=== PATIENT | female | born 1945 | race Caucasian/White ===

== ENCOUNTER 2019-02-06 16:02 | Emergency (ER) | payer MEDICARE, MEDICAID ==
[~2019-02-06] VITALS: Ht 157.5 cm; Wt 85.0 kg
[2019-02-06 18:12] LABS: BASOPHILS % (AUTO) 0.4 % (0-1); EOSINOPHILS # (AUTO) 0.1 X10'3 (0-0.9); EOSINOPHILS % (AUTO) 1.4 % (0-6); HEMATOCRIT 40.5 % (35.0-45.0); HEMOGLOBIN 13.7 g/dl (12.0-16.0); LYMPHOCYTES # (AUTO) 1.3 X10'3 (1.1-4.8); LYMPHOCYTES % (AUTO) 27.5 % (21-51); MEAN CORPUSCULAR HEMOGLOBIN 30.9 PG (27.0-31.0); MEAN CORPUSCULAR HGB CONC 33.8 g/dL (33.0-36.5); MEAN CORPUSCULAR VOLUME 91.2 FL (78-98); MEAN PLATELET VOLUME 7.6 FL (7.4-10.4); MONOCYTES # (AUTO) 0.5 X10'3 (0-0.9); MONOCYTES % (AUTO) 11.3 % (2-12); NEUTROPHILS # (AUTO) 2.8 X10'3 (1.8-7.7); NEUTROPHILS % (AUTO) 59.4 % (42-75); PLATELET COUNT 197 X10'3 (140-440); RED BLOOD COUNT 4.44 X10'6 (4.20-5.60); RED CELL DISTRIBUTION WIDTH 16.2 % (11.5-14.5); WHITE BLOOD COUNT 4.7 X10'3 (4.5-11.0)
[2019-02-06 18:23] LABS: ALANINE AMINOTRANSFERASE 24 U/L (12-78); ALBUMIN 3.2 G/DL (3.4-5.0); ALBUMIN/GLOBULIN RATIO 0.9 (1.1-1.5); ALKALINE PHOSPHATASE 105 IU/L (46-116); ANION GAP 6 (8-16); ASPARTATE AMINO TRANSFERASE 18 U/L (10-37); BILIRUBIN,TOTAL 0.2 MG/DL (0.1-1.0); BLOOD UREA NITROGEN 20 MG/DL (7-18); BUN/CREATININE RATIO 21.5 (6.6-38.0); CALCIUM 8.4 MG/DL (8.5-10.1); CHLORIDE 107 MMOL/L (99-107); CREATININE 0.93 MG/DL (0.40-0.90); GLUCOSE 83 MG/DL (70-104); LIPASE 78 U/L (73-393); MAGNESIUM 2.1 MG/DL (1.5-2.4); SODIUM 144 MMOL/L (135-145); TOTAL CARBON DIOXIDE 30.9 MMOL/L (24-32); TOTAL PROTEIN 6.6 G/DL (6.4-8.2); eGFR 59 ML/MIN
[2019-02-06] MEDS ORDERED: naproxen 500mg tablet PO ONE (19:30)
[2019-02-06 20:22] VITALS: BP 140/86
== END 2019-02-06 20:22 | disposition home or self-care (01) ==
LOC: ER 16:03
DX: R51 Headache (principal); M54.2 Cervicalgia; R42 Dizziness and giddiness; R10.30 Lower abdominal pain, unspecified; I25.10 Atherosclerotic heart disease of native coronary artery without angina pectoris; E78.00 Pure hypercholesterolemia, unspecified; I10 Essential (primary) hypertension; J44.9 Chronic obstructive pulmonary disease, unspecified; K21.9 Gastro-esophageal reflux disease without esophagitis; F31.9 Bipolar disorder, unspecified; F20.9 Schizophrenia, unspecified; Z86.73 Personal history of transient ischemic attack (TIA), and cerebral infarction without residual deficits; Z86.718 Personal history of other venous thrombosis and embolism
CPT/HCPCS: 36415; 70450; 71045; 72125; 80053; 83690; 83735; 84484; 85025; 93005; 99284

== ENCOUNTER 2019-04-04 15:34 | Observation (INO) | payer MEDICARE, MEDICAID ==
[~2019-04-04] VITALS: Ht 160 cm; Wt 101.0 kg
[2019-04-04] MEDS ORDERED: ondansetron/PF 4mg/2ml inj IV ONE (15:45)
[2019-04-04] MEDS ORDERED: nitroGLYCERIN-Tridil 50MG/D5W 250 ML IV ONE (15:45)
[2019-04-04] MEDS ORDERED: morphine 4 MG/ML inj SYRINge IV ONE (15:45)
--- NOTE | 2019-04-04 15:54 | NUR ---
Patient Conserved caregiver contact: All [phone]
[2019-04-04 16:15] LABS: BASOPHILS % (AUTO) 0.5 % (0-1); EOSINOPHILS # (AUTO) 0.1 X10'3 (0-0.9); EOSINOPHILS % (AUTO) 1.7 % (0-6); HEMATOCRIT 41.1 % (35.0-45.0); HEMOGLOBIN 13.9 g/dl (12.0-16.0); LYMPHOCYTES # (AUTO) 1.1 X10'3 (1.1-4.8); MEAN CORPUSCULAR HEMOGLOBIN 32.2 PG (27.0-31.0); MEAN CORPUSCULAR HGB CONC 33.8 g/dL (33.0-36.5); MEAN CORPUSCULAR VOLUME 95.5 FL (78-98); MEAN PLATELET VOLUME 7.8 FL (7.4-10.4); MONOCYTES # (AUTO) 0.5 X10'3 (0-0.9); MONOCYTES % (AUTO) 10.6 % (2-12); NEUTROPHILS # (AUTO) 2.9 X10'3 (1.8-7.7); NEUTROPHILS % (AUTO) 63.2 % (42-75); PLATELET COUNT 204 X10'3 (140-440); RED BLOOD COUNT 4.31 X10'6 (4.20-5.60); WHITE BLOOD COUNT 4.6 X10'3 (4.5-11.0)
[2019-04-04 16:21] LABS: PARTIAL THROMBOPLASTIN TIME 26 SECONDS (22-32)
[2019-04-04 16:25] LABS: ALANINE AMINOTRANSFERASE 19 U/L (12-78); ALBUMIN 3.3 G/DL (3.4-5.0); ALBUMIN/GLOBULIN RATIO 0.9 (1.1-1.5); ALKALINE PHOSPHATASE 105 IU/L (46-116); ANION GAP 3 (8-16); ASPARTATE AMINO TRANSFERASE 18 U/L (10-37); BILIRUBIN,TOTAL 0.2 MG/DL (0.1-1.0); BLOOD UREA NITROGEN 17 MG/DL (7-18); BUN/CREATININE RATIO 19.3 (6.6-38.0); CALCIUM 8.6 MG/DL (8.5-10.1); CHLORIDE 106 MMOL/L (99-107); CREATININE 0.88 MG/DL (0.40-0.90); GLUCOSE 89 MG/DL (70-104); POTASSIUM 4.1 MMOL/L (3.5-5.1); SODIUM 142 MMOL/L (135-145); TOTAL CARBON DIOXIDE 33.5 MMOL/L (24-32); TOTAL PROTEIN 6.9 G/DL (6.4-8.2); eGFR 63 ML/MIN
[2019-04-04] MEDS ORDERED: acetaminophen 325mg tablet PO PRN (17:25)
[2019-04-04] MEDS ORDERED: normal saline 1000ml 1,000 ML IV SCH (17:25)
[2019-04-04] MEDS ORDERED: potassium Cl 20 mEq SR tablet PO PRN ×2 (17:25)
[2019-04-04] MEDS ORDERED: magnesium Cl slow-release 64mg tablet PO PRN (17:25)
[2019-04-04] MEDS ORDERED: magnesium 4gm in 100ml NS 100 ML IV PRN (17:25)
[2019-04-04] MEDS ORDERED: morphine 2 MG/ML inj. syringe IV PRN (17:25)
[2019-04-04] MEDS ORDERED: potassium CL 10mEq/100ml bag 100 ML IV PRN ×2 (17:25)
[2019-04-04] MEDS ORDERED: ondansetron/PF 4mg/2ml inj IV PRN (17:25)
[2019-04-04] MEDS ORDERED: magnesium 2GM in 50ml NS 50 ML IV PRN (17:25)
[2019-04-04] MEDS ORDERED: regadenoson 0.4mg/5ml syringe IV ONE (17:35)
[2019-04-04] MEDS ORDERED: metoprolol tartrate 1mg/ml inj IV PRN (17:35)
[2019-04-04] MEDS ORDERED: nitroGLYCERIN 0.4mg SUBLingual tab SL PRN (17:35)
[2019-04-04] MEDS ORDERED: aminophylline 250mg/10ml inj. IV PRN (17:35)
[2019-04-04] MEDS ORDERED: ALB0.5UD NEB (17:39)
[2019-04-04] MEDS ORDERED: SENN-162 PO (17:39)
[2019-04-04] MEDS ORDERED: ETRA200T PO (17:39)
[2019-04-04] MEDS ORDERED: METO25TA6 PO (17:39)
[2019-04-04] MEDS ORDERED: RALT400T PO (17:39)
[2019-04-04] MEDS ORDERED: VALB80CA PO (17:39)
[2019-04-04] MEDS ORDERED: CARB200T PO (17:39)
[2019-04-04] MEDS ORDERED: MULT-227 PO (17:39)
[2019-04-04] MEDS ORDERED: OMEP-50 PO (17:39)
[2019-04-04] MEDS ORDERED: MELA3TAB64 PO (17:39)
[2019-04-04] MEDS ORDERED: APIX5TAB3 PO (17:39)
[2019-04-04] MEDS ORDERED: OLAN10TA3 PO (17:39)
[2019-04-04] MEDS ORDERED: OLAN20TA34 PO (17:39)
[2019-04-04] MEDS ORDERED: DOCU-148 PO (17:39)
[2019-04-04] MEDS ORDERED: EMTR1TAB18 PO (17:39)
[2019-04-04] MEDS: K and/or MAG REPLACEMENT MC SCH (20:00)
--- NOTE | 2019-04-04 20:23 | NUR ---
PT IS UP TO THE FLOOR AT THIS TIME VIA SUKHDEEP AND ONE ATTENDANT, AND HER CAREGIVER. CAREGIVER REPORTS THAT PT IS HIV (+) AND HEP C (+). PER CAREGIVER, SHE IS DELUSIONAL, SHE TELLS STORIES THAT DO NOT HAPPEN AND HALLUCINATIONS. WILL CONTINUE TO MONITOR.
[2019-04-04 20:30] VITALS: BP 129/92
[2019-04-04] MEDS ORDERED: albuterol 2.5 MG/3 ML nebule NEB PRN (22:05)
[2019-04-04 22:23] LABS: HEMOGLOBIN A1C 5.8 % (4.5-6.2)
--- NOTE | 2019-04-04 23:05 | NUR ---
pt is requesting "a pain shot" for chest pain. recent EKG shows NSR. BP 102/59, HR 79. spo2 90%/RA. Pt is asymptomatic. pt states that her pain is in her arm, points to shoulder joint, RN palpates shoulder, pt states "ouch". She states that she "having a hard time breathing." RN will admin. O2 2L/nc for spo2 of 90% and monitor, could be that has angina from anxiety and needs O2. pain in arm is reactionary to palpation which may be joint pain. Troponins are (-). EKG;NSR. all VSS. pt is on TELEmetry.
[2019-04-05] VITALS (8 sets, daily range): BP systolic 76–112; BP diastolic 44–63
[2019-04-05] MEDS: carBAMazepine 100mg chewable tablet PO SCH ×2 (00:29→08:24)
[2019-04-05 05:58] LABS: BASOPHILS % (AUTO) 0.7 % (0-1); EOSINOPHILS # (AUTO) 0.1 X10'3 (0-0.9); EOSINOPHILS % (AUTO) 2.7 % (0-6); HEMATOCRIT 40.4 % (35.0-45.0); HEMOGLOBIN 13.7 g/dl (12.0-16.0); LYMPHOCYTES # (AUTO) 1.3 X10'3 (1.1-4.8); LYMPHOCYTES % (AUTO) 27.4 % (21-51); MEAN CORPUSCULAR HEMOGLOBIN 32.4 PG (27.0-31.0); MEAN CORPUSCULAR HGB CONC 33.8 g/dL (33.0-36.5); MEAN CORPUSCULAR VOLUME 95.7 FL (78-98); MEAN PLATELET VOLUME 7.8 FL (7.4-10.4); MONOCYTES # (AUTO) 0.5 X10'3 (0-0.9); MONOCYTES % (AUTO) 11.7 % (2-12); NEUTROPHILS # (AUTO) 2.6 X10'3 (1.8-7.7); NEUTROPHILS % (AUTO) 57.5 % (42-75); PLATELET COUNT 171 X10'3 (140-440); RED BLOOD COUNT 4.22 X10'6 (4.20-5.60); RED CELL DISTRIBUTION WIDTH 14.1 % (11.5-14.5); WHITE BLOOD COUNT 4.6 X10'3 (4.5-11.0)
--- NOTE | 2019-04-05 06:13 | NUR ---
REPORT GIVEN TO MALLORY PRICE.
[2019-04-05 06:43] LABS: ALBUMIN 2.9 G/DL (3.4-5.0); ANION GAP 7 (8-16); BLOOD UREA NITROGEN 24 MG/DL (7-18); BUN/CREATININE RATIO 26.7 (6.6-38.0); CALCIUM 8.6 MG/DL (8.5-10.1); CHLORIDE 108 MMOL/L (99-107); GLUCOSE 100 MG/DL (70-104); POTASSIUM 4.4 MMOL/L (3.5-5.1); SODIUM 145 MMOL/L (135-145); eGFR 62 ML/MIN
[2019-04-05] MEDS: K and/or MAG REPLACEMENT MC SCH (08:00)
[2019-04-05] MEDS ORDERED: multivitamins, therapeutics tablet PO SCH (08:00)
[2019-04-05] MEDS ORDERED: ETRAVIRINE PO SCH (08:00)
[2019-04-05] MEDS ORDERED: pantoprazole 40mg Tablet.DR PO SCH (08:00)
[2019-04-05] MEDS ORDERED: (Emtricitabine/Tenofov Alafenam (Descovy 200-25 mg Tablet) 1 TAB) PO SCH (08:00)
[2019-04-05] MEDS ORDERED: apixaban 5mg tablet PO SCH (08:00)
[2019-04-05] MEDS ORDERED: sennosides 8.6mg tablet PO SCH (08:00)
[2019-04-05] MEDS ORDERED: RALTEGRAVIR POTASSIUM PO SCH (08:00)
[2019-04-05] MEDS ORDERED: docusate sod 100mg capsule PO SCH (08:00)
[2019-04-05] MEDS ORDERED: metoprolol tartrate 25mg tablet PO SCH (08:00)
--- NOTE | 2019-04-05 15:40 | NUR ---
Received discharge orders from Dr. Escalona. IV LFA dc'd with cannula intact. No redness/swelling at insertion site. Bandaid and pressure applied x 10 minutes (Pt on Eliquis). Reviewed discharge instructions with [employer] VP present at bedside to pick pt up from [facility]. No new medications ordered on discharge from [facility]. Pt discharged via w/c to private van driven by NVDS.
[2019-04-05] MEDS ORDERED: Melatonin 3mg tablet PO SCH (21:00)
[2019-04-05] MEDS ORDERED: VALBENAZINE TOSYLATE PO SCH (21:00)
[2019-04-05] MEDS ORDERED: olanzapine 10mg tablet PO SCH (21:00)
--- NOTE | 2019-04-06 14:59 | NUR ---
Case Management DC follow up: spoke to CARE staff/Irving Frost at [facility]/long-term. reports pt is doing fine. no c/o recurrent cp, emergent general pain, SOB, resp distress, NV, dizziness, abd pain, MUNOZ, dizziness. understands meds/why prescribed, administering as ordered, no ase noted. pt compliant. Verbalizes understanding of s/s that would warrant 9-11/ER visit for evaluation. needs met, questions answered at DC. no further questions at this time.
== END 2019-04-05 15:46 | disposition home or self-care (01) ==
LOC: ER 15:35 → ED HOLD 17:25 → ORTHO 4S 20:10
PROVIDERS: ADMIT Internal Medicine; ATTEND Internal Medicine
DX: R07.89 Other chest pain (principal); I10 Essential (primary) hypertension; I24.9 Acute ischemic heart disease, unspecified; E11.9 Type 2 diabetes mellitus without complications; K21.9 Gastro-esophageal reflux disease without esophagitis; I25.10 Atherosclerotic heart disease of native coronary artery without angina pectoris; E78.5 Hyperlipidemia, unspecified; E78.00 Pure hypercholesterolemia, unspecified; F20.9 Schizophrenia, unspecified; J44.9 Chronic obstructive pulmonary disease, unspecified; F31.9 Bipolar disorder, unspecified; Z87.19 Personal history of other diseases of the digestive system; Z86.718 Personal history of other venous thrombosis and embolism; Z86.73 Personal history of transient ischemic attack (TIA), and cerebral infarction without residual deficits; Z90.710 Acquired absence of both cervix and uterus; Z79.899 Other long term (current) drug therapy; Z79.01 Long term (current) use of anticoagulants; Z88.0 Allergy status to penicillin; Z88.5 Allergy status to narcotic agent; Z88.8 Allergy status to other drugs, medicaments and biological substances; Z88.6 Allergy status to analgesic agent
CPT/HCPCS: 36415; 71045; 78452; 80048; 80053; 83036; 83735; 83880; 84484; 85025; 85610; 85730; 87081; 93005; 93017; 94760; 96374; 96375; 99285; A9500; G0378; J2270; J2405; J7030

== ENCOUNTER 2019-12-06 11:44 | Emergency (ER) | payer MEDICARE, MEDICAID ==
[~2019-12-06] VITALS: Ht 165.1 cm; Wt 100.0 kg
[~2019-12-06 11:44] MED LIST: ALB0.5UD NEB; APIX5TAB3 PO; CARB200T PO; DOCU-148 PO; EMTR1TAB18 PO; ETRA200T PO; MELA3TAB39 PO; METO25TA6 PO; MULT-227 PO; OLAN20TA34 PO; OMEP-50 PO; RALT400T PO; SENN-263 PO; VALB80CA PO
--- NOTE | 2019-12-06 11:52 | NUR ---
PT SEEN BY DARRELL RODRIGUEZ SHORTLY AFTER ARRIVING TO ROOM. PT BEING PLACED ON BP MONITOR, NO CARDIAC MONITORING OR IV TO BE INITIATED PER VO DARRELL RODRIGUEZ.
--- NOTE | 2019-12-06 12:20 | NUR ---
PT REMAINS STABLE, CAREGIVER REMAINS AT BEDSIDE.
[2019-12-06 13:20] VITALS: BP 119/75
== END 2019-12-06 13:19 | disposition home or self-care (01) ==
LOC: ER 11:44
DX: S00.83XA Contusion of other part of head, initial encounter (principal); I25.10 Atherosclerotic heart disease of native coronary artery without angina pectoris; E78.00 Pure hypercholesterolemia, unspecified; I10 Essential (primary) hypertension; J44.9 Chronic obstructive pulmonary disease, unspecified; K21.9 Gastro-esophageal reflux disease without esophagitis; F31.9 Bipolar disorder, unspecified; F20.9 Schizophrenia, unspecified; Z86.73 Personal history of transient ischemic attack (TIA), and cerebral infarction without residual deficits; Z86.718 Personal history of other venous thrombosis and embolism; Z88.0 Allergy status to penicillin; Z88.5 Allergy status to narcotic agent; Z88.6 Allergy status to analgesic agent; Z88.8 Allergy status to other drugs, medicaments and biological substances; Z79.01 Long term (current) use of anticoagulants; Z79.899 Other long term (current) drug therapy; W19.XXXA Unspecified fall, initial encounter; Y93.89 Activity, other specified; Y92.89 Other specified places as the place of occurrence of the external cause; Y99.8 Other external cause status
CPT/HCPCS: 70450; 70486; 72125; 99285

== ENCOUNTER 2021-01-23 18:38 | Emergency (ER) | payer MEDICARE, MEDICAID ==
[~2021-01-23] VITALS: Ht 160 cm; Wt 70.3 kg
[~2021-01-23 18:38] MED LIST changes: +LOP25T PO; -METO25TA6 PO
[2021-01-23 19:55] LABS: BASOPHILS % (AUTO) 0.3 % (0-1); EOSINOPHILS # (AUTO) 0.1 X10'3 (0-0.9); EOSINOPHILS % (AUTO) 0.8 % (0-6); HEMATOCRIT 37.3 % (35.0-45.0); HEMOGLOBIN 12.8 g/dl (12.0-16.0); LYMPHOCYTES # (AUTO) 1.1 X10'3 (1.1-4.8); LYMPHOCYTES % (AUTO) 14.9 % (21-51); MEAN CORPUSCULAR HEMOGLOBIN 33.8 PG (27.0-31.0); MEAN CORPUSCULAR HGB CONC 34.3 g/dL (33.0-36.5); MEAN CORPUSCULAR VOLUME 98.4 FL (78-98); MEAN PLATELET VOLUME 8.2 FL (7.4-10.4); MONOCYTES # (AUTO) 0.7 X10'3 (0-0.9); MONOCYTES % (AUTO) 9.1 % (2-12); NEUTROPHILS # (AUTO) 5.5 X10'3 (1.8-7.7); NEUTROPHILS % (AUTO) 74.9 % (42-75); PLATELET COUNT 186 X10'3 (140-440); RED BLOOD COUNT 3.79 X10'6 (4.20-5.60); WHITE BLOOD COUNT 7.4 X10'3 (4.5-11.0)
[2021-01-23 20:05] LABS: ALANINE AMINOTRANSFERASE 23 U/L (12-78); ALBUMIN 3.1 G/DL (3.4-5.0); ALKALINE PHOSPHATASE 82 IU/L (46-116); ANION GAP 8 (8-16); ASPARTATE AMINO TRANSFERASE 19 U/L (10-37); BILIRUBIN,TOTAL 0.2 MG/DL (0.1-1.0); BLOOD UREA NITROGEN 20 MG/DL (7-18); CALCIUM 8.5 MG/DL (8.5-10.1); CHLORIDE 103 MMOL/L (99-107); CREATININE 0.91 MG/DL (0.40-0.90); GLUCOSE 108 MG/DL (70-104); POTASSIUM 3.8 MMOL/L (3.5-5.1); SODIUM 140 MMOL/L (135-145); TOTAL CARBON DIOXIDE 29.1 MMOL/L (24-32); TOTAL PROTEIN 6.3 G/DL (6.4-8.2); eGFR 60 ML/MIN
--- NOTE | 2021-01-23 20:10 | NUR ---
IRONING PLEATER ANA [id number] NURSE [phone]
[2021-01-23 20:32] LABS: CLARITY,URINE SLIGHTLY CLOUDY (Clear); COLOR,URINE YELLOW (Yellow); GLUCOSE, URINE NEGATIVE (Neg); KETONES,URINE NEGATIVE (Neg); LEUKOCYTE ESTERASE ,URINE NEGATIVE (Neg); NITRITES, URINE NEGATIVE (Neg); OCCULT BLOOD,URINE SMALL (Neg); PH,URINE 5.5 (4.8-8.0); PROTEIN,URINE NEGATIVE (Neg); UROBILINOGEN,URINE 0.2 E.U/dL (0.2-1.0)
[2021-01-23 20:34] LABS: UA COLLECTION TYPE CLN CATCH MIDSTREAM
[2021-01-23 20:43] LABS: MUCUS STRANDS MODERATE /LPF (Neg)
[2021-01-23 20:44] LABS: SQUAMOUS EPITHELIAL CELL,UR FEW /LPF (FEW)
[2021-01-23] MEDS ORDERED: normal saline 1000ML IV soln IVB ONE (20:45)
[2021-01-23 20:46] LABS: AMORPHOUS URATES 1+; BACTERIA,URINE 2+ /HPF (Neg)
[2021-01-23] MEDS ORDERED: levoFLOXACIN 500mg tablet PO ONE (21:00)
[2021-01-23] MEDS ORDERED: LEVO250T43 PO (21:05)
[2021-01-23 21:36] VITALS: BP 131/70
--- NOTE | 2021-01-23 21:37 | NUR ---
Pt given d/c instructions. Waiting for caregiver to take her home.
== END 2021-01-23 22:30 | disposition home or self-care (01) ==
LOC: ER 18:38
DX: S09.90XA Unspecified injury of head, initial encounter (principal); M54.2 Cervicalgia; M54.6 Pain in thoracic spine; N39.0 Urinary tract infection, site not specified; I25.10 Atherosclerotic heart disease of native coronary artery without angina pectoris; E78.00 Pure hypercholesterolemia, unspecified; I10 Essential (primary) hypertension; J44.9 Chronic obstructive pulmonary disease, unspecified; K59.00 Constipation, unspecified; K21.9 Gastro-esophageal reflux disease without esophagitis; Z21 Asymptomatic human immunodeficiency virus [HIV] infection status; Z86.73 Personal history of transient ischemic attack (TIA), and cerebral infarction without residual deficits; Z79.899 Other long term (current) drug therapy; Z88.0 Allergy status to penicillin; Z88.6 Allergy status to analgesic agent; Z88.8 Allergy status to other drugs, medicaments and biological substances; W19.XXXA Unspecified fall, initial encounter; Y93.89 Activity, other specified; Y92.89 Other specified places as the place of occurrence of the external cause; Y99.8 Other external cause status
CPT/HCPCS: 36415; 70450; 71045; 72125; 80053; 81001; 83880; 84484; 85025; 87077; 87088; 87186; 93005; 99285; J7030; 96360; 96361

== ENCOUNTER 2021-06-29 08:51 | Emergency (ER) | payer MEDICARE, MEDICAID ==
[~2021-06-29] VITALS: Ht 157.5 cm; Wt 80.5 kg
[~2021-06-29 08:51] MED LIST changes: -OMEP-50 PO; +OMEP20CA16 PO
[2021-06-29 11:34] VITALS: BP 114/65
== END 2021-06-29 11:36 | disposition home or self-care (01) ==
LOC: ER 08:52
DX: M25.452 Effusion, left hip (principal); M25.552 Pain in left hip; I25.10 Atherosclerotic heart disease of native coronary artery without angina pectoris; E78.00 Pure hypercholesterolemia, unspecified; I10 Essential (primary) hypertension; J44.9 Chronic obstructive pulmonary disease, unspecified; K21.9 Gastro-esophageal reflux disease without esophagitis; F31.9 Bipolar disorder, unspecified; F20.9 Schizophrenia, unspecified; Z86.73 Personal history of transient ischemic attack (TIA), and cerebral infarction without residual deficits; Z86.718 Personal history of other venous thrombosis and embolism; Z86.19 Personal history of other infectious and parasitic diseases; Z88.0 Allergy status to penicillin; Z88.5 Allergy status to narcotic agent; Z88.8 Allergy status to other drugs, medicaments and biological substances; Z79.899 Other long term (current) drug therapy
CPT/HCPCS: 73502; 99284

== ENCOUNTER 2021-11-20 11:22 | Emergency (ER) | payer MEDICARE, MEDICAID ==
[~2021-11-20] VITALS: Ht 157.5 cm; Wt 80.0 kg
[2021-11-20 12:18] LABS: BASOPHILS % (AUTO) 0.3 % (0-1); EOSINOPHILS % (AUTO) 0.4 % (0-6); HEMOGLOBIN 13.7 g/dl (12.0-16.0); LYMPHOCYTES # (AUTO) 0.8 X10'3 (1.1-4.8); LYMPHOCYTES % (AUTO) 13.8 % (21-51); MEAN CORPUSCULAR HEMOGLOBIN 32.9 PG (27.0-31.0); MEAN CORPUSCULAR HGB CONC 33.4 g/dL (33.0-36.5); MEAN CORPUSCULAR VOLUME 98.5 FL (78-98); MEAN PLATELET VOLUME 7.9 FL (7.4-10.4); MONOCYTES # (AUTO) 0.2 X10'3 (0-0.9); MONOCYTES % (AUTO) 4.2 % (2-12); NEUTROPHILS # (AUTO) 4.6 X10'3 (1.8-7.7); NEUTROPHILS % (AUTO) 81.3 % (42-75); PLATELET COUNT 157 X10'3 (140-440); RED BLOOD COUNT 4.16 X10'6 (4.20-5.60); RED CELL DISTRIBUTION WIDTH 13.1 % (11.5-14.5); WHITE BLOOD COUNT 5.7 X10'3 (4.5-11.0)
[2021-11-20 12:33] LABS: ALANINE AMINOTRANSFERASE 33 U/L (12-78); ALBUMIN 3.4 G/DL (3.4-5.0); ALBUMIN/GLOBULIN RATIO 1.1 (1.1-1.5); ALKALINE PHOSPHATASE 97 IU/L (46-116); ANION GAP 8 (8-16); ASPARTATE AMINO TRANSFERASE 29 U/L (10-37); BILIRUBIN,TOTAL 0.2 MG/DL (0.1-1.0); BLOOD UREA NITROGEN 19 MG/DL (7-18); BUN/CREATININE RATIO 24.4 (6.6-38.0); CALCIUM 8.6 MG/DL (8.5-10.1); CHLORIDE 105 MMOL/L (99-107); CREATININE 0.78 MG/DL (0.40-0.90); GLUCOSE 132 MG/DL (70-104); LIPASE 78 U/L (73-393); POTASSIUM 3.9 MMOL/L (3.5-5.1); SODIUM 142 MMOL/L (135-145); TOTAL CARBON DIOXIDE 29.4 MMOL/L (24-32); TOTAL PROTEIN 6.6 G/DL (6.4-8.2); eGFR 72 ML/MIN
[2021-11-20] MEDS ORDERED: ondansetron/PF 4mg/2ml inj IV ONE ×2 (12:35→12:40)
[2021-11-20] MEDS ORDERED: normal saline 1000ml 1,000 ML IV ONE (12:40)
[2021-11-20] MEDS ORDERED: famotidine/PF 10 mg/ml inj IV ONE (12:40)
--- NOTE | 2021-11-20 12:52 | NUR ---
ATTEMPT EKG, PRIMARY RN AT BEDSIDE ATTEMPTING IV. WILL ATTEMPT AGAIN
--- NOTE | 2021-11-20 13:07 | NUR ---
Pt left ED for CT in [place] [facility], no stress noted
[2021-11-20 14:04] LABS: CLARITY,URINE CLOUDY (Clear); COLOR,URINE YELLOW (Yellow); GLUCOSE, URINE NEGATIVE (Neg); KETONES,URINE NEGATIVE (Neg); LEUKOCYTE ESTERASE ,URINE NEGATIVE (Neg); NITRITES, URINE NEGATIVE (Neg); OCCULT BLOOD,URINE NEGATIVE (Neg); PROTEIN,URINE NEGATIVE (Neg); UROBILINOGEN,URINE 0.2 E.U/dL (0.2-1.0)
[2021-11-20] MEDS ORDERED: ONDA8TAB13 PO (14:04)
[2021-11-20 14:16] LABS: MUCUS STRANDS MODERATE /LPF (Neg); SQUAMOUS EPITHELIAL CELL,UR FEW /LPF (FEW); UA COLLECTION TYPE STRAIGHT CATH
[2021-11-20 14:17] LABS: BACTERIA,URINE FEW /HPF (Neg); RBC,URINE 0-2 /HPF (0-2); WBC,URINE 0-4 /HPF (0-4)
[2021-11-20 14:18] LABS: AMORPHOUS PHOSPHATES 2+; TRANSITIONAL EPI CELLS,URINE FEW /HPF
[2021-11-20 15:45] VITALS: BP 130/74
== END 2021-11-20 15:50 | disposition home or self-care (01) ==
LOC: ER 11:22
DX: R10.84 Generalized abdominal pain (principal); E78.00 Pure hypercholesterolemia, unspecified; I10 Essential (primary) hypertension; J44.9 Chronic obstructive pulmonary disease, unspecified; K21.9 Gastro-esophageal reflux disease without esophagitis; F31.9 Bipolar disorder, unspecified; Z88.0 Allergy status to penicillin; Z88.5 Allergy status to narcotic agent; Z88.6 Allergy status to analgesic agent; Z88.8 Allergy status to other drugs, medicaments and biological substances
CPT/HCPCS: 36415; 70450; 71045; 80053; 81001; 83690; 84484; 85025; 93005; 96361; 96374; 96375; 99285; J2405; J3490; J7030; A4353

== ENCOUNTER 2022-10-01 10:12 | Emergency (ER) | payer MEDICARE, MEDICAID ==
[~2022-10-01] VITALS: Ht 157.5 cm; Wt 81.8 kg
[~2022-10-01 10:12] MED LIST changes: +ONDA8TAB13 PO
[2022-10-01 10:43] LABS: BASOPHILS % (AUTO) 0.6 % (0-1); EOSINOPHILS # (AUTO) 0.1 X10'3 (0-0.9); EOSINOPHILS % (AUTO) 1.1 % (0-6); HEMOGLOBIN 13.4 g/dl (12.0-16.0); LYMPHOCYTES # (AUTO) 1.4 X10'3 (1.1-4.8); LYMPHOCYTES % (AUTO) 25.5 % (21-51); MEAN CORPUSCULAR HEMOGLOBIN 33.2 PG (27.0-31.0); MEAN CORPUSCULAR HGB CONC 33.5 g/dL (33.0-36.5); MEAN CORPUSCULAR VOLUME 99.4 FL (78-98); MEAN PLATELET VOLUME 7.9 FL (7.4-10.4); MONOCYTES # (AUTO) 0.3 X10'3 (0-0.9); MONOCYTES % (AUTO) 6.3 % (2-12); NEUTROPHILS # (AUTO) 3.6 X10'3 (1.8-7.7); NEUTROPHILS % (AUTO) 66.5 % (42-75); PLATELET COUNT 192 X10'3 (140-440); RED BLOOD COUNT 4.03 X10'6 (4.20-5.60); RED CELL DISTRIBUTION WIDTH 13.3 % (11.5-14.5); WHITE BLOOD COUNT 5.4 X10'3 (4.5-11.0)
[2022-10-01 11:03] LABS: ALANINE AMINOTRANSFERASE 23 U/L (12-78); ALBUMIN 3.3 G/DL (3.4-5.0); ALBUMIN/GLOBULIN RATIO 1.1 (1.1-1.5); ALKALINE PHOSPHATASE 77 IU/L (46-116); ANION GAP 5 (8-16); ASPARTATE AMINO TRANSFERASE 18 U/L (10-37); BILIRUBIN,TOTAL 0.2 MG/DL (0.1-1.0); BLOOD UREA NITROGEN 17 MG/DL (7-18); BUN/CREATININE RATIO 22.1 (10.0-20.0); CALCIUM 8.4 MG/DL (8.5-10.1); CHLORIDE 104 MMOL/L (99-107); CREATININE 0.77 MG/DL (0.40-0.90); GLUCOSE 96 MG/DL (70-104); POTASSIUM 4.2 MMOL/L (3.5-5.1); SODIUM 138 MMOL/L (135-145); TOTAL CARBON DIOXIDE 29.2 MMOL/L (24-32); TOTAL PROTEIN 6.4 G/DL (6.4-8.2); eCRCL 50 ML/MIN; eGFR 73 ML/MIN
[2022-10-01 11:14] LABS: PRO BRAIN NATRIURETIC PEPTIDE 431 PG/ML (0-450)
[2022-10-01 14:43] VITALS: BP 127/74; PULSE 48; RESP 18; TEMP 97.8; O2SAT 97
== END 2022-10-01 14:44 | disposition home or self-care (01) ==
LOC: ER 10:12
DX: R10.9 Unspecified abdominal pain (principal); I11.9 Hypertensive heart disease without heart failure; E78.00 Pure hypercholesterolemia, unspecified; K21.9 Gastro-esophageal reflux disease without esophagitis; F31.9 Bipolar disorder, unspecified; F20.9 Schizophrenia, unspecified; Z88.8 Allergy status to other drugs, medicaments and biological substances; Z88.5 Allergy status to narcotic agent; Z88.0 Allergy status to penicillin; Z88.6 Allergy status to analgesic agent
CPT/HCPCS: 36415; 71045; 80053; 83880; 84484; 85025; 93005; 99285

== ENCOUNTER 2022-12-09 13:53 | Emergency (ER) | payer MEDICARE, MEDICAID ==
[~2022-12-09] VITALS: Ht 157.5 cm; Wt 68.6 kg
[2022-12-09] MEDS ORDERED: acetaminophen 325mg tablet PO STA (18:56)
[2022-12-09 19:45] VITALS: BP 111/50; PULSE 55; RESP 16; TEMP 97.9; O2SAT 0
== END 2022-12-09 19:46 | disposition home or self-care (01) ==
LOC: ER 13:53
DX: S01.01XA Laceration without foreign body of scalp, initial encounter (principal); W18.39XA Other fall on same level, initial encounter; Y93.89 Activity, other specified; Y92.89 Other specified places as the place of occurrence of the external cause; Y99.8 Other external cause status
CPT/HCPCS: 12001; 70450; 72125; 99284; A6446; A6449

== ENCOUNTER 2023-03-01 02:13 | Emergency (ER) | payer MEDICARE, MEDICAID ==
[~2023-03-01] VITALS: Ht 162.6 cm; Wt 73.0 kg
[2023-03-01 02:24] VITALS: TEMP 97.9
[2023-03-01] MEDS ORDERED: acetaminophen 325mg tablet PO ONE (02:45)
[2023-03-01 03:19] VITALS: RESP 17
[2023-03-01 05:17] VITALS: BP 132/60; PULSE 64; O2SAT 96
== END 2023-03-01 05:28 | disposition home or self-care (01) ==
LOC: ER 02:14
DX: S00.83XA Contusion of other part of head, initial encounter (principal); E78.00 Pure hypercholesterolemia, unspecified; I10 Essential (primary) hypertension; J44.9 Chronic obstructive pulmonary disease, unspecified; K21.9 Gastro-esophageal reflux disease without esophagitis; F31.9 Bipolar disorder, unspecified; Z88.8 Allergy status to other drugs, medicaments and biological substances; Z88.0 Allergy status to penicillin; Z88.6 Allergy status to analgesic agent; Z79.899 Other long term (current) drug therapy; W22.8XXA Striking against or struck by other objects, initial encounter; Y93.89 Activity, other specified; Y92.89 Other specified places as the place of occurrence of the external cause; Y99.8 Other external cause status
CPT/HCPCS: 70450; 72125; 73501; 99284

== ENCOUNTER 2023-03-13 16:28 | Emergency (ER) | payer MEDICARE, MEDICAID ==
[~2023-03-13] VITALS: Ht 165.1 cm; Wt 95.0 kg
[2023-03-14 02:09] VITALS: RESP 14
[2023-03-14 02:17] VITALS: BP 107/63; PULSE 73; O2SAT 95
[2023-03-14 02:19] VITALS: TEMP 98.5
== END 2023-03-14 02:21 | disposition home or self-care (01) ==
LOC: ER 16:29
DX: T14.90XA Injury, unspecified, initial encounter (principal); W22.8XXA Striking against or struck by other objects, initial encounter; Y93.89 Activity, other specified; Y92.89 Other specified places as the place of occurrence of the external cause; Y99.8 Other external cause status
CPT/HCPCS: 70450; 72125; 99284

== ENCOUNTER 2023-10-13 15:52 | Emergency (ER) | payer MEDICARE, MEDICAID ==
[~2023-10-13] VITALS: Ht 165.1 cm; Wt 71.5 kg
[~2023-10-13 15:52] MED LIST changes: -OLAN20TA34 PO; +OLAN20TA81 PO; +ONDA-245 PO; -ONDA8TAB13 PO
[2023-10-13 17:28] LABS: ALANINE AMINOTRANSFERASE 17 U/L (12-78); ALBUMIN 3.4 G/DL (3.4-5.0); ALKALINE PHOSPHATASE 83 IU/L (46-116); ANION GAP 10 (8-16); ASPARTATE AMINO TRANSFERASE 23 U/L (10-37); BILIRUBIN,TOTAL 0.2 MG/DL (0.1-1.0); BLOOD UREA NITROGEN 28 MG/DL (7-18); CALCIUM 8.5 MG/DL (8.5-10.1); CHLORIDE 106 MMOL/L (99-107); GLUCOSE 97 MG/DL (70-104); POTASSIUM 4.1 MMOL/L (3.5-5.1); SODIUM 143 MMOL/L (135-145); TOTAL CARBON DIOXIDE 27.4 MMOL/L (24-32); TOTAL PROTEIN 6.7 G/DL (6.4-8.2); eCRCL 54 ML/MIN; eGFR 70 ML/MIN
[2023-10-13] MEDS ORDERED: CARB200T9 PO (17:34)
[2023-10-13] MEDS ORDERED: QUET50TA24 PO (17:34)
[2023-10-13] MEDS ORDERED: LISI10TA27 PO (17:34)
[2023-10-13] MEDS ORDERED: BENZ1TAB93 PO (17:34)
[2023-10-13] MEDS ORDERED: OMEP20CA16 PO (17:34)
[2023-10-13] MEDS ORDERED: DIVA-74 PO (17:34)
[2023-10-13 17:36] LABS: SALICYLATE 2.2 MG/DL (4.0-20.0)
[2023-10-13] MEDS ORDERED: MELA1TAB28 PO (17:51)
[2023-10-13 17:57] LABS: ACETAMINOPHEN < 2.0 UG/ML (10-30); ETHANOL < 10 MG/DL (<10)
[2023-10-13 18:20] LABS: BILIRUBIN,URINE NEGATIVE (Neg); CLARITY,URINE SLIGHTLY CLOUDY (Clear); COLOR,URINE YELLOW (Yellow); GLUCOSE, URINE NEGATIVE (Neg); KETONES,URINE TRACE mg/dl (Neg); LEUKOCYTE ESTERASE ,URINE NEGATIVE (Neg); NITRITES, URINE NEGATIVE (Neg); OCCULT BLOOD,URINE NEGATIVE (Neg); PH,URINE 6.5 (4.8-8.0); PROTEIN,URINE NEGATIVE (Neg); UROBILINOGEN,URINE 0.2 E.U/dL (0.2-1.0)
[2023-10-13 18:22] LABS: URINE AMPHETAMINE SCREEN NEGATIVE (Neg); URINE BARBITUATE SCREEN NEGATIVE (Neg); URINE BENZODIAZEPINES SCREEN NEGATIVE (Neg); URINE CANNABINOID SCREEN NEGATIVE (Neg); URINE COCAINE SCREEN NEGATIVE (Neg); URINE METHADONE SCREEN NEGATIVE (Neg); URINE OPIATE SCREEN NEGATIVE (Neg); URINE PHENCYCLIDINE SCREEN NEGATIVE (Neg)
[2023-10-13 18:27] LABS: UA COLLECTION TYPE CLN CATCH MIDSTREAM
[2023-10-13 18:34] LABS: BACTERIA,URINE NONE SEEN /HPF (Neg); RBC,URINE NONE SEEN /HPF (0-2); SQUAMOUS EPITHELIAL CELL,UR FEW /LPF (FEW); WBC,URINE NONE SEEN /HPF (0-4)
[2023-10-13 19:51] LABS: BASOPHILS % (AUTO) 0.5 % (0-1); EOSINOPHILS # (AUTO) 0.1 X10'3 (0-0.9); EOSINOPHILS % (AUTO) 1.3 % (0-6); HEMATOCRIT 41.6 % (35.0-45.0); HEMOGLOBIN 13.9 g/dl (12.0-16.0); LYMPHOCYTES # (AUTO) 1.6 X10'3 (1.1-4.8); LYMPHOCYTES % (AUTO) 35.6 % (21-51); MEAN CORPUSCULAR HEMOGLOBIN 33.8 PG (27.0-31.0); MEAN CORPUSCULAR HGB CONC 33.4 g/dL (33.0-36.5); MEAN CORPUSCULAR VOLUME 101.1 FL (78-98); MEAN PLATELET VOLUME 8.5 FL (7.4-10.4); MONOCYTES # (AUTO) 0.3 X10'3 (0-0.9); MONOCYTES % (AUTO) 7.1 % (2-12); NEUTROPHILS # (AUTO) 2.5 X10'3 (1.8-7.7); NEUTROPHILS % (AUTO) 55.5 % (42-75); PLATELET COUNT 182 X10'3 (140-440); RED BLOOD COUNT 4.12 X10'6 (4.20-5.60); RED CELL DISTRIBUTION WIDTH 12.9 % (11.5-14.5); WHITE BLOOD COUNT 4.5 X10'3 (4.5-11.0)
[2023-10-13] MEDS: Melatonin 3mg tablet PO SCH (20:44)
[2023-10-13] MEDS: carBAMazepine 100mg chewable tablet PO SCH (20:44)
[2023-10-13] MEDS: QUEtiapine 25mg tablet PO SCH (20:44)
[2023-10-13] MEDS: divalproex 250mg tablet, delayed-release PO SCH (20:44)
[2023-10-13] MEDS: benztropine 1mg tablet PO SCH (20:44)
[2023-10-13] MEDS: apixaban 5mg tablet PO SCH (20:45)
[2023-10-14 07:55] VITALS: BP_DIAS 69; RESP 14; TEMP 97.9; O2SAT 95
[2023-10-14] MEDS: lisinopril 10 MG tablet PO SCH (08:07)
[2023-10-14] MEDS: multivitamins, therapeutics tablet PO SCH (08:07)
[2023-10-14] MEDS: pantoprazole 40mg Tablet.DR PO SCH (08:07)
[2023-10-14 08:08] VITALS: BP_SYST 121; PULSE 60
[2023-10-14] MEDS: metoprolol tartrate 25mg tablet PO SCH (08:08)
[2023-10-14] MEDS ORDERED: TENO25TA PO (08:48)
[2023-10-14] MEDS: TENOFOVIR ALAFENAMIDE FUMARATE PO SCH (10:58)
[2023-10-14] MEDS: Emtricitabine/Tenofov Alafenam (Descovy 200-25 mg Tablet PO SCH (10:58)
[2023-10-14] MEDS: raltegravir 400mg tablet PO SCH (10:59)
== END 2023-10-14 11:15 | disposition home or self-care (01) ==
LOC: ER 15:53
DX: F22 Delusional disorders (principal); Z73.6 Limitation of activities due to disability; I25.10 Atherosclerotic heart disease of native coronary artery without angina pectoris; E78.00 Pure hypercholesterolemia, unspecified; I10 Essential (primary) hypertension; J44.9 Chronic obstructive pulmonary disease, unspecified; K21.9 Gastro-esophageal reflux disease without esophagitis; F31.9 Bipolar disorder, unspecified; F20.9 Schizophrenia, unspecified; Z86.718 Personal history of other venous thrombosis and embolism; Z86.73 Personal history of transient ischemic attack (TIA), and cerebral infarction without residual deficits; Z88.8 Allergy status to other drugs, medicaments and biological substances; Z88.0 Allergy status to penicillin; Z79.899 Other long term (current) drug therapy; Z20.822 Contact with and (suspected) exposure to COVID-19
CPT/HCPCS: 36415; 80053; 80305; 80329; 81001; 84443; 85025; 87811; 99285; G0480; 80320

== ENCOUNTER 2024-07-23 14:17 | Emergency (ER) | payer MEDICARE, MEDICAID ==
[~2024-07-23] VITALS: Ht 160 cm; Wt 71.5 kg
[~2024-07-23 14:17] MED LIST changes: -ALB0.5UD NEB; +BENZ1TAB97 PO; -CARB200T PO; +CARB200T9 PO; +DIVA-74 PO; -DOCU-148 PO; -ETRA200T PO; +LISI10TA27 PO; +MELA1TAB28 PO; -MELA3TAB39 PO; -OLAN20TA81 PO; -ONDA-245 PO; +QUET50TA24 PO; -SENN-263 PO; +TENO25TA PO; -VALB80CA PO
--- NOTE | 2024-07-23 14:30 | Physician Documentation ---
History of Present Illness ~ Stated Complaint: FALL HIT HEAD ON THINNERS Time Seen by MD: 14:35 OK to notify your PCP?: Yes Primary Medical Doctor: None Source: patient Mode of Arrival: POV Exam Limitations: no limitations HPI 78 y/o female who lives at facility BIB caregiver due to fall hitting head on eliquis which occurred about 15minutes prior to arrival. Patient states that she fell due to tripping on rug in bathroom. Pain in head is reported 9/10 in severity. No LOC. No chest pain, SOB, nausea or vomiting. No dizziness. Tetanus within 5 years?: No (UNKNOWN) Medication Reconciliation Allergies: Coded Allergies: diazepam (Verified Allergy, Intermediate, 06/29/21) diphenhydramine (Verified Allergy, Intermediate, 06/29/21) meperidine (Verified Allergy, Intermediate, 06/29/21) Penicillins (Verified Allergy, Unknown, 06/29/21) aspirin (Verified Allergy, Unknown, 06/29/21) codeine (Verified Allergy, Unknown, 06/29/21) hydrocodone (Unverified Allergy, Unknown, 06/29/21) Uncoded Allergies: ASA (Allergy, Intermediate, 04/04/19) PENICILLIN (Allergy, Intermediate, 04/04/19) Scheduled Apixaban (Eliquis), 1 TAB PO Q12H, (Reported) Benztropine Mesylate* (Cogentin*), 1 MG PO BID, (Reported) Carbamazepine (Carbamazepine), 1 TAB PO TID, (Reported) Divalproex Sodium (Divalproex Sodium), 1 TAB PO BID, (Reported) Emtricitabine/Tenofov Alafenam (Descovy 200-25 mg Tablet), 1 TAB PO DAILY, (Reported) Lisinopril (Lisinopril), 10 MG PO DAILY, (Reported) Melatonin/Pyridoxine HCl (B6) (Melatonin 3 mg Tablet), 1 TAB PO HS, (Reported) Metoprolol Tartrate* (Lopressor tablet*), 1 TAB PO DAILY, (Reported) Multivitamins (Multiple Vitamin), 1 TAB PO DAILY, (Reported) Omeprazole (Omeprazole), 1 CAP PO DAILY, (Reported) Quetiapine Fumarate (Quetiapine Fumarate), 1 TAB PO BID, (Reported) Raltegravir Potassium (Isentress tablet), 1 TAB PO Q12H, (Reported) Tenofovir Alafenamide Fumarate (Vemlidy), 1 TAB PO DAILY, (Reported) Past Medical History Past Medical History: CVA/TIA/Stroke, Coronary Artery Disease, High Cholesterol, Hypertension, COPD, Constipation, GERD, Hepatitis C, Deep Vein Thrombosis, HIV, Bipolar, Schizophrenia Past Surgical History: noncontributory Alcohol Use: None Drug Use: none Lives In: Assisted Care Occupation: disabled Review of Systems All Other Systems at this time: Reviewed and Negative Physical Exam Physical Exam GENERAL: Alert, no acute distress. HEENT: NCAT, EOMI, PERRL, moist oral mucosa. NECK: Supple, trachea midline. CARDIAC: Regular rate and rhythm, no murmurs, rubs, or gallops. PV: Equal distal pulses. No lower extremity edema, cap refill less than 2 seconds. RESPIRATORY: Equal breath sounds, clear to auscultation bilaterally, no respiratory distress. MUSCULOSKELETAL: Normal range of motion OF CERVICAL SPINE, NTTP OVER SPINOUS PROCESSES, Normal gait WITH WALKER. NEUROLOGICAL: Awake, alert, and oriented x 3. SKIN: Warm/dry, no pallor, no rash. LACERATION ON OCCIPITAL SCALP 1CM IN LENGTH HORIZONTAL, BLOOD AROUND LACERATION STUCK TO HAIR. PSYCH: Alert and appropriate. Affect congruent with mood. Speech is clear. Good eye contact. Procedures Laceration/Wound Repair Laceration/Wound Repair : Location: SCALP Length (cm): 1 Anesthesia: Lidocaine w/ Epi Volume Anesthetic (mls): 5 Prep: irrigated by nurse Irrigated w/ Saline (mls): 350 Debrided: minimal Undermining: none Margins: revised Foreign Body: not identified Repaired: skin Wound Repaired With: claudette Splint Applied?: Yes Sling Applied?: Yes Tolerated Procedure Well?: yes, no complications Progress Results/Orders Results/Orders Orders - COLLEEN CUMM[address] Ct Head (07/23/24 14:40) Laceration/I&D Tray Set Up (07/23/24 14:31) General Nursing Order (07/23/24 14:31) Completed Orders - COLLEEN CUM[facility] Ct Head (07/23/24 14:40) Lidocaine 1% W/Epi 1:100,000 (Xylocaine (07/23/24 14:35) Vital Signs 507/23/24 07/23/24 07/23/24 14:20 14:35 14:35 14:35 Temp 98.2 98.2 98.2 Pulse 67 93 60 Resp 18 16 16 B/P (MAP) 186/167 112/64 (80) Pulse Ox 95 98 94 O2 Delivery Room Air O2 Flow Rate 0 0 07/23/24 14:56 Temp 98.2 Pulse 63 Resp 16 B/P (MAP) 163/142 (149) Pulse Ox 94 O2 Flow Rate 0 Laboratory Tests Test 07/23/24 14:57 CBC Comment Coagulation Comments Chemistry Comments EKG/XRAY/CT/US/VASC/MRI CT : Interpreted By: radiologist CT: head With Contrast?: No Medical Decision Making Differential Dx:Considerations: Include: Closed head injury, Cervical spine injury, Skull facture, Fracture, Abrasion, Contusion, Foreign body, Laceration, Intoxication-alcohol, Intoxication-other drug, Substance abuse disorder, Personality disorder, Non-accidental trauma Departure Time of Disposition: 15:22 Disposition: HOME / SELF CARE / HOMELESS Impression: Primary Impression: Laceration of scalp Qualified Codes: S01.01XA - Laceration without foreign body of scalp, initial encounter Additional Impressions: Head trauma Qualified Codes: S09.90XA - Unspecified injury of head, initial encounter Chronic anticoagulation Condition: Stable Discharge Instructions: Laceration Care, Adult Additional Instructions: DO NOT GET LACERATION WET X 24HOURS CLAUDETTE NEED TO BE REMOVED IN 10DAYS IF INCREASING HEAD PAIN, FEVER, NAUSEA OR VOMITING OR ANY OTHER CONCERNING SYMPTOMS RETURN TO ER Referrals: NO PRIMARY CARE PROVIDER (PCP) Education Educated: Patient Educated regarding: diagnosis, treatment, need for follow up Additional Comment Medical Screen Exam 78 y/o female who is special needs lives at facility BIB caregiver due to fall hitting head on eliquis which occurred about 15minutes prior to arrival. Patient states that she fell due to tripping on rug in bathroom. Pain in head is reported 9/10 in severity. No LOC. No chest pain, SOB, nausea or vomiting. No dizziness. PEx: Patient in mild distress saying "My head hurts." Speech is clear. Patient walks with walker. Scalp occipital 1cm in length laceration, minimal bleeding, area is ttp a/p: 1. Head trauma -head CT ordered 2. Chronic fqogflklfokoddo-jzeijer-okyqpidtv unsure why on eliquis 3. HTN 4. Scalp laceration, occipital-lidocaine with epi ordered, stapler orders placed 5. Developmental delay The note accurately reflects work and decisions made by me.Colleen RAMÍREZ 07/23/24 14:27 Signature Scribe Signature: x Attestation: COLLEEN Ramos July 23, 2024 14:30
--- NOTE | 2024-07-23 14:52 | RADIOLOGY REPORT ---
EXAM: CT CT HEAD HISTORY: FALL ON THINNERS-ELIQUIS, HIT BACK OF HEAD SMALL CUT ON HEAD COMPARISON: CT CT HEAD on DOS: 03/13/23, CT CT HEAD on DOS: 03/01/23, CT CT HEAD on DOS: 12/09/22 TECHNIQUE: Axial images were obtained and reformatted in coronal and sagittal planes. All CT scans at this medical facility are performed using dose modulation techniques as appropriate to a performed e xam including the following: Automated exposure control was utilized; adjustment of the MA and/or KV according to patient size; and use of iterative reconstruction technique. CT Dose: CTDI volume is 56 mGy. Dose-length product is 12/10/2047 mGy*cm FINDINGS: Supratentorial Region: No evidence for large acute territorial ischemia. No intracranial hemorrhage is noted. Posterior Fossa: No acute abnormality. Brainstem: Unremarkable. Sellar/Suprasellar Region: Unremarkable. Ventricles, Cisterns, Sulci: Age-appropriate. Orbits: Unremarkable. Paranasal Sinuses: Unremarkable. Mastoid Air Cells: Unremarkable. Vasculature: Unremarkable. Bones/Soft Tissues: No acute abnormality. Other: None. IMPRESSION: 1. No acute intracranial process.
[2024-07-23 14:56] VITALS: BP 163/142; TEMP 98.2
[2024-07-23] MEDS: LIDOcaine 1% W/epiNEPHrine 1:100,000 20ml vial IJ ONE (15:17)
[2024-07-23 15:53] VITALS: PULSE 79; RESP 15; O2SAT 96
== END 2024-07-23 16:02 | disposition home or self-care (01) ==
LOC: ER 14:18
DX: S01.01XA Laceration without foreign body of scalp, initial encounter (principal); E78.00 Pure hypercholesterolemia, unspecified; F20.9 Schizophrenia, unspecified; F31.9 Bipolar disorder, unspecified; I10 Essential (primary) hypertension; I25.10 Atherosclerotic heart disease of native coronary artery without angina pectoris; J44.9 Chronic obstructive pulmonary disease, unspecified; Z86.73 Personal history of transient ischemic attack (TIA), and cerebral infarction without residual deficits; Z88.0 Allergy status to penicillin; Z88.5 Allergy status to narcotic agent; Z88.6 Allergy status to analgesic agent; Z88.8 Allergy status to other drugs, medicaments and biological substances; Z79.01 Long term (current) use of anticoagulants; W01.0XXA Fall on same level from slipping, tripping and stumbling without subsequent striking against object, initial encounter; Y93.89 Activity, other specified; Y92.89 Other specified places as the place of occurrence of the external cause; Y99.8 Other external cause status
CPT/HCPCS: 12001; 70450; 99284; Z7610

== ENCOUNTER 2024-09-19 11:45 | Emergency (ER) | payer MEDICARE, MEDICAID ==
[~2024-09-19] VITALS: Ht 160 cm; Wt 72.7 kg
--- NOTE | 2024-09-19 11:59 | Physician Documentation ---
History of Present Illness Stated Complaint: FALL Primary Medical Doctor: None HPI This is a 78-year-old female who was brought to the emergency department from a residential care facility. The worker that accompanies her notes that she has had several recent falls lately, and has been complaining of left abdominal pain. The patient is on Eliquis, and the worker also notes that she had a recent anxiety medication change. She suspects that this medication change has increased her fall risk. No witnessed head strike. Chief Complaint: Fall, left flank pain. Caveat: May have dementia Independent Historians: Caregiver History of Present Illness: Patient is a 78-year-old woman brought in by caregiver for having fallen yesterday at 2:00 p.m. in some time Friday. Review of systems: All systems were reviewed and are negative except for what is indicated in the history of present illness. Past Medical History: Possible dementia, schizophrenia, bipolar affective disorder, HTN, COPD, cerebrovascular disease, bradycardia, GERD, osteoarthritis Past Surgical History: Social History: Lives/resides at [facility] [place] [facility] Medications: Reviewed as documented Nursing Notes Allergies: Reviewed as documented in Nursing Notes Medication Reconciliation Allergies: Coded Allergies: diazepam (Verified Allergy, Intermediate, 09/19/24) diphenhydramine (Verified Allergy, Intermediate, 09/19/24) meperidine (Verified Allergy, Intermediate, 09/19/24) Penicillins (Verified Allergy, Unknown, 09/19/24) aspirin (Verified Allergy, Unknown, 09/19/24) codeine (Verified Allergy, Unknown, 09/19/24) hydrocodone (Unverified Allergy, Unknown, 06/29/21) Uncoded Allergies: ASA (Allergy, Intermediate, 04/04/19) PENICILLIN (Allergy, Intermediate, 04/04/19) Scheduled Apixaban (Eliquis), 1 TAB PO Q12H, (Reported) Benztropine Mesylate* (Cogentin*), 1 MG PO BID, (Reported) Carbamazepine (Carbamazepine), 1 TAB PO TID, (Reported) Divalproex Sodium (Divalproex Sodium), 1 TAB PO BID, (Reported) Emtricitabine/Tenofov Alafenam (Descovy 200-25 mg Tablet), 1 TAB PO DAILY, (Reported) Lisinopril (Lisinopril), 10 MG PO DAILY, (Reported) Melatonin/Pyridoxine HCl (B6) (Melatonin 3 mg Tablet), 1 TAB PO HS, (Reported) Metoprolol Tartrate* (Lopressor tablet*), 1 TAB PO DAILY, (Reported) Multivitamins (Multiple Vitamin), 1 TAB PO DAILY, (Reported) Omeprazole (Omeprazole), 1 CAP PO DAILY, (Reported) Quetiapine Fumarate (Quetiapine Fumarate), 1 TAB PO BID, (Reported) Raltegravir Potassium (Isentress tablet), 1 TAB PO Q12H, (Reported) Tenofovir Alafenamide Fumarate (Vemlidy), 1 TAB PO DAILY, (Reported) Past Medical History Past Medical History: CVA/TIA/Stroke, Coronary Artery Disease, High Cholesterol, Hypertension, COPD, Constipation, GERD, Hepatitis C, Deep Vein Thr ombosis, HIV, Bipolar, Schizophrenia Past Surgical History: noncontributory Alcohol Use: None Drug Use: none Lives In: Assisted Care Occupation: disabled Review of Systems ROS As stated above in the HPI, otherwise all systems are reviewed and negative. Physical Exam Physical Exam General: Alert, no apparent distress. Respiratory: No distress. Equal chest expansion. Lungs CV: Gastrointestinal: Soft,TTP left abd with mild guarding, nondistended. Bowels sounds present. Extremities: Normal range of motion, no deformity. Neurologic: No focal deficits. Conversant but with slow speech. Psychiatric: Normal mood and affect. Skin: Normal color, warm and dry. No edema, no ecchymosis. Medical Decision Making Findings Differential diagnosis includes but is not limited to: Minor closed head injury, traumatic brain injury, intrathoracic injury, intra-abdominal injury, contusion, hematoma Abdomen pelvis CT scan with out IV contrast, indication: Fall, trauma Impression: Acute fracture of left posterior rib 12 and left posterolateral ribs 10 and 11 with associated small left-sided pleural effusion and left-great wv-ztkw-lnuqj basilar atelectasis. Constipation. Sigmoid diverticulosis without diverticulitis. Mild gastric wall thickening which may be due to inadequate distention with mild gastritis not excluded. Head CT without IV contrast, indication: Fall, possible head injury Impression: No acute intracranial abnormality. Generalized cerebral volume loss and mild chronic microvascular ischemic change. Laboratory data independent interpretation: CBC: CMP: Toxicology: Serology: Urinalysis: Emergency department course/medical decision-making: Consultation/communications: Departure Time of Disposition: 16:52 Disposition: 01 HOME / SELF CARE / HOMELESS Impression: Primary Impression: Rib fractures Qualified Codes: S22.42XA - Multiple fractures of ribs, left side, initial encounter for closed fracture Additional Impressions: Frequent falls Contusion of left flank Condition: Stable Discharge Instructions: Contusion, Pmyc-dl-Pacu, Fall Prevention in the Home, Adult, Yfmb-av-Ixeu, How to Use an Incentive Spirometer, Rib Fracture, Celn-ti-Tnwg Additional Instructions: FOLLOW UP WITH YOUR DOCTOR NEEDED. TAKE TYLENOL FOR PAIN. Prescriptions Oxycodone HCl/Acetaminophen (Percocet 5-325 mg Tablet) 5 Mg-325 Mg Tablet 1 TAB PO Q12H PRN PRN for pain for 10 Days, #20 TAB 0 Refills Prov: MAGEN CASEY MD 09/19/24 Education Educated: Patient, Other (CAREGIVER) Educated regarding: diagnosis, treatment, need for follow up Signature Scribe Signature: No scribe Attestation: No scribe KALEN KUNZ NP Sep 19, 2024 11:58 MAGEN CASEY MD Sep 19, 2024 14:08
[2024-09-19 12:43] LABS: MEAN PLATELET VOLUME 8.6 FL (7.4-10.4); RED CELL DISTRIBUTION WIDTH 13.4 % (11.5-14.5)
[2024-09-19 12:49] LABS: CREATININE 0.82 MG/DL (0.40-0.90); TOTAL CARBON DIOXIDE 29.2 MMOL/L (24-32); eCRCL 48 ML/MIN; eGFR 68 ML/MIN
[2024-09-19 14:44] LABS: LEUKOCYTE ESTERASE ,URINE NEGATIVE (Neg); NITRITES, URINE NEGATIVE (Neg); OCCULT BLOOD,URINE LARGE (Neg)
[2024-09-19 14:50] LABS: UA COLLECTION TYPE STRAIGHT CATH
[2024-09-19 14:52] LABS: HYALINE CASTS 0-3 /LPF (NEGATIVE); MUCUS STRANDS NONE SEEN /LPF (Neg); RENAL CELLS, URINE FEW /HPF; SQUAMOUS EPITHELIAL CELL,UR NONE SEEN /LPF (FEW)
--- NOTE | 2024-09-19 15:11 | RADIOLOGY REPORT ---
CLINICAL HISTORY: fall, trauma TECHNIQUE: Helical imaging carried out from skull base to vertex without intravenous contrast. This e xam was performed according to our departmental dose optimization program. Up-to-date CT equipment an d radiation dose reduction techniques are utilized as appropriate. CTDIVol: 62.52 mGy DLP: 1054.23 mGy-cm WID: COMPARISON: CT CT HEAD on DOS: 07/23/24 FINDINGS: Generalized cerebral volume loss with concordant prominence of the subarachnoid spaces and ventricles . Mild patchy low attenuation in the cerebral white matter consistent with nonspecific white matter d isease. There are incidental bilateral basal ganglia calcifications. There is no midline shift or mass effect. The cooper white matter interfaces are maintained. The basal cisterns are patent. There is no evidence of acute intracranial hemorrhage or extra-axial fluid bay ection. The mastoid air cells and visualized paranasal sinuses are well-aerated. Prior ocular lens re placement. IMPRESSION: No acute intracranial abnormality. Generalized cerebral volume loss and mild chronic microvascular ischemic change.
--- NOTE | 2024-09-19 16:46 | RADIOLOGY REPORT ---
Exam: CT CT ABDOMEN PELVIS History: fall, trauma Comparison Study: None TECHNIQUE: Multidetector CT of the abdomen and pelvis without IV contrast. Axial, coronal and sagitta l multiplanar reformats were obtained from the axial data set by the technologist. Radiation Dose Information: CT Dose: CTDI volume is 17.34 mGy. Dose-length product is 950.7 mGy*cm FINDINGS: Small left-sided pleural effusion with ddsu-dgepjaz-lyun-right basilar atelectasis. Liver, spleen, pancreas and adrenal glands unremarkable. Status post cholecystectomy. Kidneys and ureters are unremarkable. Punctate calcification over the right posterior urinary bladder . Focus of air of the nondependent portion of the urinary bladder. Otherwise, the urinary bladder is unremarkable. Status post hysterectomy. Small hiatal hernia. Mild gastric wall thickening. Small bowel loops are unremarkable. Appendix is u nremarkable. Moderate to large amount of fecal material within the colon. Sigmoid diverticulosis with out diverticulitis. No evidence of intraperitoneal free air or free fluid. No evidence of aortic aneurysm. Dfay-rv-pozpzugt atherosclerotic calcification of the aorta and bilat eral iliacs. No significant lymphadenopathy. Nonspecific calcifications of the bilateral lateral upper thigh with Qrwk-tmkjofn-bdlz-right right la teral upper thigh subcutaneous fat edema. Minimal body wall edema of the abdomen and pelvis. There ap pears to be postsurgical changes of the ventral abdominal wall. Acute fracture of left posterior rib 12 left posterolateral ribs 11 and 10. Diffuse demineralization. Multilevel severe facet osteoarthritis of the lumbar spine. IMPRESSION: Acute fracture of left posterior rib 12 and left posterolateral ribs 10 and 11 with associated small left-sided pleural effusion and ryxa-xfdgbhl-gmqd-right basilar atelectasis. Constipation. Sigmoid diverticulosis without diverticulitis. Mild gastric wall thickening which may be due to inadequate distention with mild gastritis not exclud ed. Edema of the Xuuz-coefkuo-wvna-right lateral upper thigh.
[2024-09-19] MEDS ORDERED: OXYC-145 PO (17:04)
[2024-09-19] MEDS: oxyCODONE/APAP 5-325mg tablet PO ONE (17:18)
[2024-09-19 17:29] VITALS: BP 149/77; PULSE 85; RESP 18; TEMP 98.6; O2SAT 93
== END 2024-09-19 17:28 | disposition home or self-care (01) ==
LOC: ER 11:46
DX: S22.42XA Multiple fractures of ribs, left side, initial encounter for closed fracture (principal); S30.1XXA Contusion of abdominal wall, initial encounter; R51.9 Headache, unspecified; I10 Essential (primary) hypertension; E78.00 Pure hypercholesterolemia, unspecified; F20.9 Schizophrenia, unspecified; F31.9 Bipolar disorder, unspecified; I25.10 Atherosclerotic heart disease of native coronary artery without angina pectoris; J44.9 Chronic obstructive pulmonary disease, unspecified; K21.9 Gastro-esophageal reflux disease without esophagitis; Z79.01 Long term (current) use of anticoagulants; Z88.0 Allergy status to penicillin; Z88.5 Allergy status to narcotic agent; Z88.6 Allergy status to analgesic agent; Z88.8 Allergy status to other drugs, medicaments and biological substances; Z86.718 Personal history of other venous thrombosis and embolism; Z86.73 Personal history of transient ischemic attack (TIA), and cerebral infarction without residual deficits; W19.XXXA Unspecified fall, initial encounter; Y93.89 Activity, other specified; Y92.89 Other specified places as the place of occurrence of the external cause; Y99.8 Other external cause status
CPT/HCPCS: 36415; 70450; 74176; 80053; 81001; 83690; 85025; 99285; C1758

== ENCOUNTER 2024-09-30 05:10 | Emergency (ER) | payer MEDICARE, MEDICAID ==
[~2024-09-30] VITALS: Ht 154.9 cm; Wt 75.4 kg
[~2024-09-30 05:10] MED LIST changes: +CEFD300C3 PO; +LACT1CAP26 PO; +OXYC-145 PO
--- NOTE | 2024-09-30 05:32 | Physician Documentation ---
History of Present Illness ~ Chief Complaint: Shortness of Breath Stated Complaint: DIFF BREATHING Time Seen by MD: 05:26 Primary Medical Doctor: None HPI 78-year-old female with a past medical history of hypertension, HIV, osteoarthritis, GERD, bipolar affective disorder, schizophrenia, dementia, bradycardia, hypertension, AFibpresenting with acute onset shortness of breath. Patient states that she was at home and woke up from sleep with difficulty breathing. She also complains of some pain over her left side. Patient does not provide much other history. Patient was recently admitted and discharged from our hospital after being treated for a UTI. Medication Reconciliation Allergies: Coded Allergies: diazepam (Verified Allergy, Intermediate, 09/19/24) diphenhydramine (Verified Allergy, Intermediate, 09/19/24) meperidine (Verified Allergy, Intermediate, 09/19/24) Penicillins (Verified Allergy, Unknown, 09/19/24) aspirin (Verified Allergy, Unknown, 09/19/24) codeine (Verified Allergy, Unknown, 09/19/24) hydrocodone (Unverified Allergy, Unknown, 06/29/21) Uncoded Allergies: ASA (Allergy, Intermediate, 04/04/19) PENICILLIN (Allergy, Intermediate, 04/04/19) Scheduled Apixaban (Eliquis), 1 TAB PO Q12H, (Reported) Benztropine Mesylate* (Cogentin*), 1 MG PO BID, (Reported) Carbamazepine (Carbamazepine), 1 TAB PO TID, (Reported) Cefdinir* (Cefdinir*), 1 CAP PO Q12H Divalproex Sodium (Divalproex Sodium), 1 TAB PO BID, (Reported) Emtricitabine/Tenofov Alafenam (Descovy 200-25 mg Tablet), 1 TAB PO DAILY, (Reported) Lactobacillus Rhamnosus (Culturelle), 1 CAP PO BID Lisinopril (Lisinopril), 10 MG PO DAILY, (Reported) Melatonin/Pyridoxine HCl (B6) (Melatonin 3 mg Tablet), 1 TAB PO HS, (Reported) Metoprolol Tartrate* (Lopressor tablet*), 1 TAB PO DAILY, (Reported) Multivitamins (Multiple Vitamin), 1 TAB PO DAILY, (Reported) Omeprazole (Omeprazole), 1 CAP PO DAILY, (Reported) Quetiapine Fumarate (Quetiapine Fumarate), 1 TAB PO BID, (Reported) Raltegravir Potassium (Isentress tablet), 1 TAB PO Q12H, (Reported) Tenofovir Alafenamide Fumarate (Vemlidy), 1 TAB PO DAILY, (Reported) Scheduled PRN Oxycodone HCl/Acetaminophen (Percocet 5-325 mg Tablet), 1 TAB PO Q12H PRN PRN for pain Discontinued Medications Azithromycin (Zithromax), 1 TAB PO DAILY Past Medical History Past Medical History: CVA/TIA/Stroke, Coronary Artery Disease, High Cholesterol, Hypertension, COPD, Constipation, GERD, Hepatitis C, Deep Vein Thrombosis, HIV, Bipolar, Schizophrenia Past Surgical History: noncontributory Patient History: Patient reports no known family medical history. Alcohol Use: None Drug Use: none Lives In: Assisted Care Occupation: disabled Review of Systems All Other Systems at this time: Reviewed and Negative Physical Exam Vital Signs: Temperature: 97.7, Source: Temporal, Heart Rate: 68, Respiratory Rate: 18, BP: 131/72, Pulse Oximetry: 98, Weight: 75.400 Oxygen Flow Rate: 2.0 Physical Exam I have reviewed the triage vitals. CONST: Well developed and well nourished. In no acute distress HENT: Head Atraumatic EYES: Pupils are equal, round and reactive to light. Normal conjunctiva NECK: Normal range of motion. Supple. CARDIO: Normal rate and regular rhythm. No murmurs, rubs, or gallops. S1, S2. PULM/CHEST: No respiratory distress. Lungs clear to auscultation. No wheeze. ABD: Soft and nontender. Nondistended. Bowel sounds normal. No guarding. : Exam deferred MSK: No edema. No deformity. NEURO: Alert and oriented to person, place and time. Moving all extremities SKIN: Warm and dry. PSYCH: Normal mood and affect. Good eye contact. Progress Results/Orders Results/Orders Orders - CINTHIA HENNING MD Chest,Single View (09/30/24 05:15) Monitor (09/30/24 05:15) Saline Lock (09/30/24 05:15) Oxygen (09/30/24 05:15) Electrocardiogram (09/30/24 05:15) Culture Blood (09/30/24 05:26) Completed CINTHIA Li MD Chest,Single View (09/30/24 05:15) Cbc/Diff (09/30/24 05:15) BMP (09/30/24 05:15) PBNP (09/30/24 05:15) Electrocardiogram (09/30/24 05:15) Hs Troponin I W Calculations (09/30/24 05:15) Hs Troponin I W Calculations (09/30/24 07:15) Lacticsepsis (09/30/24 05:26) Man Diff (09/30/24 07:00) Vital Signs 09/30/24 09/30/24 09/30/24 09/30/24 05:18 05:49 06:53 07:09 Temp 97.7 97.7 Pulse 68 71 Resp 18 19 16 B/P (MAP) 131/72 147/118 (128) Pulse Ox 98 95 O2 Delivery Nasal Cannula* O2 Flow Rate 2.0 2 2.0 FiO2 28 09/30/24 09/30/24 09/30/24 09/30/24 07:10 08:01 08:41 10:31 Pulse 71 71 75 Resp 20 14 B/P (MAP) 140/83 (102) 145/76 (99) 132/78 (96) Pulse Ox 96 93 93 O2 Flow Rate 2.0 0 0 09/30/24 09/30/24 11:14 12:56 Pulse 79 80 Resp 18 15 B/P (MAP) 144/78 (100) 137/76 Pulse Ox 96 96 O2 Flow Rate 0 Laboratory Tests Test 09/30/24 07:00 09/30/24 08:07 White Blood Count 4.6 Red Blood Count 3.55 L Hemoglobin 12.1 Hematocrit 35.4 Mean Corpuscular Volume 99.7 H Mean Corpuscular Hemoglobin 34.2 H Mean Corpuscular Hemoglobin Concent 34.3 Red Cell Distribution Width 13.4 Platelet Count 174 Mean Platelet Volume 8.7 Neutrophils (%) (Auto) 55.9 Lymphocytes (%) (Auto) 25.5 Monocytes (%) (Auto) 15.8 H Eosinophils (%) (Auto) 2.1 Basophils (%) (Auto) 0.7 Neutrophils # (Auto) 2.6 Lymphocytes # (Auto) 1.2 Monocytes # (Auto) 0.7 Eosinophils # (Auto) 0.1 Basophils # (Auto) 0.0 CBC Comment Differential Total Cells Counted 100 Neutrophils % (Manual) 58.0 Band Neutrophils % 1.0 Lymphocytes % (Manual) 28.0 Monocytes % (Manual) 9.0 Eosinophils % (Manual) 2.0 Metamyelocytes % 2.0 H Platelet Estimate Normal Red Blood Cell Morphology Perf Basophilic Stippling Macrocytosis 1+ Sodium Level 144 Potassium Level 3.8 Chloride Level 108 H Carbon Dioxide Level 32.1 H Anion Gap 4 L Blood Urea Nitrogen 12 Creatinine 0.80 Estimated GFR/1.73 m2 70 BUN/Creatinine Ratio 15.0 Glucose Level 106 H Lactic Acid Level 0.9 Calcium Level 7.9 L Troponin I High Sensitivity 15 16 Pro-B-Type Natriuretic Peptide 1209 H Albumin 2.5 L Chemistry Comments Troponin I High Sens Percent Delta 6 Troponin I Hi Sens Absolute Change 1 Microbiology Date/Time Source Procedure Growth Status 09/30/24 08:07 Blood Arm Right Blood Culture - Preliminary NEGATIVE (LESS THAN 24 HOURS) Resulted EKG/XRAY/CT/US/VASC/MRI EKG : Additional Comment EKG as interpreted by me showing normal sinus rhythm with a rate of 89 beats per minute, normal axis, no ischemia Chest X-Ray : Additional Comments CHEST RADIOGRAPH Indication: CP Technique: Single frontal view of the chest was obtained COMPARISON: DI CHEST,SINGLE VIEW on DOS: 09/25/24, CHEST,SINGLE VIEW on DOS: 12/27 FINDINGS: Lines and Tubes: None Lungs: Mild congestion Pleura: No effusion. No pneumothorax. Cardiomediastinal contours: Unremarkable Bones: Unremarkable IMPRESSION: Increased interstital prominence. This may represent pulmonary vascular c ongestion or viral pneumonia. Clinical correlation advised. Medical Decision Making Findings 6:00 a.m.: Care the patient was transferred [place] from Dr. Henning, to follow up with laboratory studies and disposition. Patient is only complaint was shortness a breath. However the patient isn't hypoxic and not requiring oxygen. Lab work is unremarkable. Patient has a normal white blood cell count and the patient is not anemic. Troponins are negative. Patient does have a moderately elevated pro BNP. However the chest x-ray does not show any congestive heart failure. There is a possible infiltrate in the right lower lobe. Patient will be placed on Zithromax for possible pneumonia. CAREGIVER WAS CONCERNED ABOUT BLOOD PRESSURE IN THE 200S OVER 90. THE PATIENT HAS BEEN NORMOTENSIVE OR JUST MILDLY HYPERTENSIVE HERE. PATIENT'S VITAL SIGNS HAVE BEEN STABLE. PATIENT ISN'T REQUIRING OXYGEN. PATIENT DID NOT REQUIRE ANY INTERVENTION FOR HYPERTENSION BECAUSE HER BLOOD PRESSURE HAS BEEN 135-150 HERE. PATIENT DOES NOT MEET ADMISSION CRITERIA. THERE IS NO EVIDENCE OF A MEDICAL OR SURGICAL EMERGENCY. Patient does not require additional antibiotics. She is already on cefdinir for a urinary tract infection. Patient does not require Zithromax. Test results, treatment plan and all the above was discussed with the patient and her caregiver. Patient [facility] at [facility]. Departure Time of Disposition: 08:30 Disposition: 01 HOME / SELF CARE / HOMELESS Impression: Primary Impression: Shortness of breath Additional Impression: Pneumonia Qualified Codes: J18.9 - Pneumonia, unspecified organism Condition: Stable Discharge Instructions: Community-Acquired Pneumonia, Adult, [id number] Additional Instructions: YOU MAY HAVE A PNEUMONIA IN THE RIGHT LOWER LOBE. RECOMMEND YOU FOLLOW UP WITH YOUR PRIMARY CARE DOCTOR NEEDED. BEGIN THE ZITHROMAX TOMORROW. PRINT TO THE ER IF YOU HAVE ANY WORSENING SYMPTOMS OR DIFFICULTY BREATHING. Education Educated: Patient, Other (Caregiver) Educated regarding: diagnosis, treatment, need for follow up Signature Scribe Signature: No scribe Attestation: No scribe CINTHIA HENNING MD Sep 30, 2024 05:32 MAGEN CASEY MD Sep 30, 2024 08:29
--- NOTE | 2024-09-30 05:54 | RADIOLOGY REPORT ---
CHEST RADIOGRAPH Indication: CP Technique: Single frontal view of the chest was obtained COMPARISON: DI CHEST,SINGLE VIEW on DOS: 09/25/24, CHEST,SINGLE VIEW on DOS: 01/23/21 FINDINGS: Lines and Tubes: None Lungs: Mild congestion Pleura: No effusion. No pneumothorax. Cardiomediastinal contours: Unremarkable Bones: Unremarkable IMPRESSION: Increased interstital prominence. This may represent pulmonary vascular congestion or viral pneumonia . Clinical correlation advised.
[2024-09-30 07:09] VITALS: TEMP 97.7
--- NOTE | 2024-09-30 07:30 | ELECTROCARDIOGRAPH REPORT ---
[facility] Test Date: 2024-09-30 Test Time: 05:15:02 Pat Name: KASIE US Department: PRE/OP CARDIOLOGY [id number] Room: Gender: F Teletype Installer: : 1945 Requested By: CINTHIA HENNING Order Number: [id number] Reading MD: Dr. WILFREDO Cross Measurements Intervals [place] Rate: 69 P: 47 MT: 125 QRS: 67 QRSD: 126 T: 23 QT: 385 QTc: 413 Interpretive Statements Sinus rhythm Right bundle branch block Baseline wander in lead(s) aVL,V3 Electronically Signed On 09-30-2024 17:26:[address] WILFREDO Cross Please click the below link to view image of tracing.
[2024-09-30 07:34] LABS: MEAN PLATELET VOLUME 8.7 FL (7.4-10.4); RED CELL DISTRIBUTION WIDTH 13.4 % (11.5-14.5)
[2024-09-30 07:56] LABS: CREATININE 0.80 MG/DL (0.40-0.90); PRO BRAIN NATRIURETIC PEPTIDE 1209 PG/ML (0-450); TOTAL CARBON DIOXIDE 32.1 MMOL/L (24-32); eCRCL 44 ML/MIN; eGFR 70 ML/MIN
[2024-09-30] MEDS ORDERED: AZIT-164 PO (08:36)
[2024-09-30 09:44] LABS: BANDS% (MANUAL) 1.0 % (0-10); EOSINOPHILS % (MANUAL) 2.0 % (0-6); LYMPHOCYTES % (MANUAL) 28.0 % (21-51); METAMYLEOCYTES% (MANUAL) 2.0 % (0-0); MONOCYTES % (MANUAL) 9.0 % (2-12); NEUTROPHILS % (MANUAL) 58.0 % (42-75)
[2024-09-30 09:50] LABS: PLATELET ESTIMATE NORMAL
[2024-09-30 12:56] VITALS: BP 137/76; PULSE 80; RESP 15; O2SAT 96
== END 2024-09-30 13:02 | disposition home or self-care (01) ==
LOC: ER 05:11
DX: J18.9 Pneumonia, unspecified organism (principal); R06.02 Shortness of breath; I10 Essential (primary) hypertension; I25.10 Atherosclerotic heart disease of native coronary artery without angina pectoris; F31.9 Bipolar disorder, unspecified; J44.9 Chronic obstructive pulmonary disease, unspecified; E78.00 Pure hypercholesterolemia, unspecified; F20.9 Schizophrenia, unspecified; K21.9 Gastro-esophageal reflux disease without esophagitis; Z86.73 Personal history of transient ischemic attack (TIA), and cerebral infarction without residual deficits; Z86.718 Personal history of other venous thrombosis and embolism; Z88.0 Allergy status to penicillin; Z88.5 Allergy status to narcotic agent; Z88.6 Allergy status to analgesic agent; Z88.8 Allergy status to other drugs, medicaments and biological substances; Z79.899 Other long term (current) drug therapy
CPT/HCPCS: 36415; 71045; 80048; 83605; 83880; 84484; 85007; 85025; 87040; 93005; 99285